=== PATIENT | male | born 1990 | race Caucasian/White ===

== ENCOUNTER → 2018-05-20 12:57 | Outpatient (CLI) | payer OTHER, SELFPAY ==
--- NOTE | 2018-05-20 | DI.MRI.S_ITS ---
PROCEDURE: MR ANGIO HEAD WO CON INDICATIONS: DIZZINESS AND GIDDINESS TECHNIQUE: Noncontrast axial 3-D [id number] MR angiogram, with 3-dimensional maximum intensity projection (MIP) reformats of the internal carotid arteries and posterior circulation then performed. COMPARISON: None. FINDINGS: Image quality: Excellent. Anterior circulation: Intracranial internal carotid arteries demonstrate normal size and intraluminal flow signal. The flow within the paired anterior cerebral arteries is normal and symmetric. The flow within the middle cerebral arteries is normal and symmetric. The anterior communicating artery is seen. No stenoses, occlusions, or aneurysms. Posterior circulation: Visualized portions of the vertebral arteries demonstrate normal caliber, and join to form a normal appearing basilar artery. The flow within the posterior cerebral arteries is normal and symmetric. No stenoses, occlusions, or aneurysms. IMPRESSION: Normal MR angiogram of the brain. Dictated by: Latasha Brar MD, PhD on 05/20/2018 at 17:04 Approved by: Latasha Brar MD, PhD on 05/20/2018 at 17:07
--- NOTE | 2018-05-20 | DI.MRI.S_ITS ---
PROCEDURE: MR HEAD/BRAIN WO/W CON INDICATIONS: DIZZINESS AND GIDDINESS TECHNIQUE: Noncontrast axial T1 spin echo, axial T2 fast spin echo, sagittal and axial FLAIR, coronal T2 fast spin echo, axial gradient echo, axial diffusion and ADC through the brain. After the administration of contrast, axial and coronal 3D VIBE or T1 spin echo with fat saturation through the brain. COMPARISON: [facility], CT, HEAD WITHOUT CONTRAST, 10/12/2017, 19:06. FINDINGS: Image quality: Excellent. CSF Spaces: Basal cisterns are patent. No extra-axial fluid collections. Ventricles are normal in size and shape. Brain: No midline shift. No intracranial bleeds or masses. No abnormal intracranial enhancement. The brainstem appears normal. Diffusion-weighted images demonstrate no acute ischemic insults. No chronic ischemic insults. Normal intravascular flow voids are present. Skull and face: Calvarial marrow is normal in signal. Orbits appear normal. Sinuses: Sinuses and mastoids appear clear. IMPRESSION: 1. No intracranial disease process. 2. No abnormal intracranial mass 3. No abnormal intracranial signal or suspicious postcontrast enhancement. Dictated by: Latasha Brar MD, PhD on 05/20/2018 at 16:54 Approved by: Latasha Brar MD, PhD on 05/20/2018 at 17:00
== END ==
PROVIDERS: Family Provider Family Medicine; PCP Family Medicine; Visit Provider Family Medicine
DX: R42 Dizziness and giddiness (principal)
CPT/HCPCS: 70544; 70553; A9579

== ENCOUNTER → 2019-02-09 13:01 | Outpatient (CLI) | payer OTHER, SELFPAY ==
--- NOTE | 2019-02-09 14:04 | DI.CT.S_ITS ---
PROCEDURE: CT ABDOMEN PELVIS W CON INDICATIONS: Surveillance Malignant neoplasm of descended right testis TECHNIQUE: After the administration of oral and intravenous contrast, 5 mm thick sections acquired from the diaphragms to the symphysis. 5 mm thick coronal and sagittal reformats were performed. For radiation dose reduction, the following was used: automated exposure control, adjustment of mA and/or kV according to patient size. COMPARISON: [facility], , CT THORAX/ABDOMEN/PELVIS WITH CONTRAST, 05/16/2018, 9:30. FINDINGS: Image quality: Excellent. ABDOMEN: Lung bases: Lung bases are clear. Heart size is normal. Solid organs: Liver is normal in size and is diffusely hypodense suggesting hepatic steatosis. Gallbladder is moderately contracted. Biliary system is non-dilated. Pancreas enhances normally. Spleen is normal in size and enhancement. No adrenal nodules. Kidneys are normal in size and enhancement, without hydronephrosis. Peritoneum and bowel: Stomach, small bowel, and colon loops are normal in caliber and wall thickness. The appendix is not visualized; however surgical clips are present in the region of the cecum in the lower quadrant suggesting prior appendectomy. No free fluid or air. Nodes and vessels: Multiple surgical clips are present in the periaortic retroperitoneal space. Although no discrete lymph nodes are visualized, there is soft tissue thickening around the anterior aspect of the aorta just inferior to the renal artery and veins (series 2, image 39). This is not visualized on the pre-operative CT of the abdomen and pelvis dated 05/16/18. Aorta and inferior vena cava are normal in caliber. Miscellaneous: No ventral hernias. PELVIS: Genitourinary: Bladder wall thickness is normal. The left testicle is not visualized and is presumably surgically absent. Miscellaneous: No inguinal hernias or adenopathy. Bones: No suspicious bony lesions. No vertebral body compression fractures. IMPRESSION: 1. Postsurgical changes within the periaortic retroperitoneal space and soft tissue thickening as described above in the infrarenal periaortic space. No discrete enlarged retroperitoneal lymph nodes are visualized. It is unclear whether this represents postoperative change or a conglomerate linda mass. If there are more distant postoperative CT comparisons available, an addendum can be issued to evaluate for interval change. Dictated by: Sharyn Bill M.D. on 02/09/2019 at 14:36 Approved by: Sharyn Bill M.D. on 02/09/2019 at 14:43
== END ==
PROVIDERS: Family Provider Family Medicine; PCP Family Medicine; Visit Provider Urology
DX: C62.11 Malignant neoplasm of descended right testis (principal); Z92.21 Personal history of antineoplastic chemotherapy
CPT/HCPCS: 74177; Q9967